=== PATIENT | female | born 1935 | race Caucasian/White ===

== ENCOUNTER 2019-03-25 06:46 | Day surgery (SDC) | payer OTHER | END 2019-03-25 11:02 | disposition home or self-care (01) | LOC: AMB-ENDOS 06:46 → EDBD 09:00 → AMB-ENDOS 11:02 | DX: K63.5 Polyp of colon (principal); Z93.3 Colostomy status; Z12.11 Encounter for screening for malignant neoplasm of colon ==

== ENCOUNTER 2021-01-05 08:00 | Outpatient (CLI) | payer OTHER | END 2021-01-05 08:30 | disposition home or self-care (01) | LOC: PPH VACUNA 08:00 | DX: Z23 Encounter for immunization (principal) ==

== ENCOUNTER 2021-08-03 10:33 | Outpatient (CLI) | payer OTHER | END 2021-08-03 10:35 | disposition home or self-care (01) | LOC: SONOGRAMA 10:33 | PROVIDERS: ATTEND Pathology Anatomic Pathology & Clinical Pathology | DX: E04.2 Nontoxic multinodular goiter (principal) ==